=== PATIENT | male | born 1990 | race Caucasian/White ===

== ENCOUNTER 2022-06-16 20:27 | Emergency (ER) | payer SELFPAY ==
[2022-06-16 20:30] VITALS: BP 181/117; PULSE 104; RESP 16; TEMP 36.8; O2SAT 99; BMI 26.5
--- NOTE | 2022-06-16 20:33 | DI.RAD.S_ITS ---
PROCEDURE: XR FOOT RT MIN 3V INDICATIONS: Injury with swelling and bruising TECHNIQUE: 3 views of the foot were acquired. COMPARISON: None. FINDINGS: Bones: No fractures or dislocations. No suspicious bony lesions. Soft tissues: No tibiotalar joint effusion. Achilles tendon appears normal. IMPRESSION: 1. No fracture or dislocation. Dictated by: Yordan Mcdermott M.D. on 06/16/2022 at 21:03 Approved by: Yordan Mcdermott M.D. on 06/16/2022 at 21:03
--- NOTE | 2022-06-16 20:48 | ED_ITS ---
HPI - Extremity Injury (Lower) General Chief Complaint: Extremity Injury, Lower Stated Complaint: Injured R foot Time Seen by Provider: 06/16/22 20:34 Source: patient Mode of arrival: Ambulatory History of Present Illness HPI Narrative: 31M daily smoker with noncontributory medical history presents with a significant other and a chief complaint of right foot injury suffered earlier today. He was at a local trampoline park when he was attempting to jump up onto a wall and accidentally ran his foot into the wall. He now has pain in his right foot, particularly when ambulating or attempting to flex or extend his forefoot. He denies any numbness, tingling or weakness. He denies ankle tibial, knee hip pain. He is otherwise well and free of complaint Related Data Allergies Allergy/AdvReac Type Severity Reaction Status Date / Time No Known Drug Allergies Allergy Verified 06/16/22 20:30 Review of Systems Review of Systems Narrative: GENERAL: Denies chills, fatigue, malaise, fever, sweats. HEENT: Denies sinus pain, ear pain, sore throat, difficulty swallowing, dizzi ness. RESPIRATORY: Denies dyspnea, cough, wheezing, hemoptysis, sputum. CARDIOVASCULAR: Denies chest pain, palpitations, orthopnea, edema, GASTROINTESTINAL: Denies nausea, vomiting, abdominal pain, diarrhea, constipation, melena. : Denies dysuria, frequency, incontinence, hematuria, urinary retention. MUSCULOSKELETAL: See HPI SKIN: Denies rash, skin lesions, or other NEUROLOGIC: Denies weakness, headache, numbness, change in speech, confusion, seizures, incoordination. PSYCHIATRIC: No concerning psychosocial issues. 12 point review of systems is negative except for those stated above Patient History Social History Smoking Status: Current every day smoker Smoking Status: Current every day smoker alcohol intake frequency: holidays/special occasions only Substance Use Type: marijuana Exam Narrative Exam Narrative: GENERAL: [31] year old patient appears stated age. Well-developed patient, in mild distress. HEAD: Atraumatic. Normocephalic. EYES: Pupils equal round and reactive. Extraocular motions intact. No scleral icterus. No injection or drainage. ENT: Nose without bleeding, purulent drainage. Throat without erythema, tonsillar hypertrophy or exudate. Airway patent. NECK: Trachea midline. Non tender CARDIOVASCULAR: Regular rate and rhythm without murmurs, gallops, or rubs. RESPIRATORY: Clear to auscultation. Breath sounds equal bilaterally. No wheezes, rales, or rhonchi. GASTROINTESTINAL: Abdomen soft, non-tender, nondistended. EXTREMITIES: Full range of motion of right hip, knee, ankle and foot. There is tenderness to palpation at the right 1st metatarsophalangeal joint. This is closed, isolated and neurovascularly intact BACK: Nontender without deformity or crepitance. No flank tenderness. NEURO: AOx3. SKIN: No rash or erythema of visible areas Initial Vital Signs Initial Vital Signs: Vital Signs Temperature 98.3 F 06/16/22 20:30 Pulse Rate 104 H 06/16/22 20:30 Respiratory Rate 16 06/16/22 20:30 Blood Pressure 181/117 H 06/16/22 20:30 Pulse Oximetry 99 06/16/22 20:30 Oxygen Delivery Method 06/16/22 20:30 Procedures Orthopedic Splinting/Casting Injury #1: Side: right Lower Extremity Injury Location: foot Lower Extremity Immobilizer: post-op shoe Post splinting neuro exam: intact Post splinting vascular exam: intact Placed by: Nursing Course Orders Ordered: ED Orders 06/16/22 20:33 XR foot RT min 3V Stat Vital Signs Vital signs: Vital Signs - 8 hr 06/16/22 20:30 Temperature 98.3 F Pulse Rate 104 H Respiratory Rate 16 Blood Pressure 181/117 H Pulse Oximetry 99 Oxygen Delivery Method Room Air MDM - Extremity Injury (Lower) MDM Narrative Medical decision making narrative: [31-year-old male with foot injury] Multiple etiologies for patient's symptoms considered including, but not limited to: [Fracture, dislocation, contusion versus other] Prior Charts reviewed: None available in our EMR Imaging reviewed: No fracture or dislocation Findings and discharge diagnosis discussed with patient/family followed by verbalization of understanding Return precautions discussed with patient/family whom verbalize understanding of diagnosis and plan Discharge Plan Departure Patient Disposition: Home Clinical Impression: Sprain of foot, right Qualifiers: Encounter type: initial encounter Qualified Code(s): S93.601A - Unspecified sprain of right foot, initial encounter Instructions: DI for Foot Sprain Activity Restrictions/Additional Instructions: *You have been diagnosed with [right foot sprain. As we discussed your history and physical exam as well as x-ray are reassuring and there is no obvious fracture or dislocation noted] *What to do: *Please continue to take your regular medications as directed. [ ] New medication prescriptions sent to your pharmacy: [ ] [ ] New medication written as a paper prescription [ ] No new medications given *Please follow up with your primary care provider in 2-3 days, call for an appointment. Let them know you were seen in the Emergency Department and that we ask that you be seen in follow up. We will electronically transmit a record of today's note if your PCP is in our system *If you do not have a primary care provider please contact the [facility] Resource line at [phone]. They will ask some questions about your medical history and help get you set up with a doctor in the community. *Return to Emergency Department if you should have any new, worsening or concerning symptoms, such as [fever greater than 101 F, shaking chills, worsening pain, persistent vomiting or other bothersome symptoms] Stand Alone Forms: Patient Portal/API
== END 2022-06-16 21:23 | disposition home or self-care (01) ==
PROVIDERS: Emergency Provider Emergency Medicine
DX: S93.601A Unspecified sprain of right foot, initial encounter (principal); W22.01XA Walked into wall, initial encounter; Y93.44 Activity, trampolining
CPT/HCPCS: 73630; 99281; 99283